=== PATIENT | female | born 1980 | race American Indian/Alaskan Native ===

== ENCOUNTER 2017-04-04 18:07 | Emergency (ER) | payer OTHER ==
[~2017-04-04] VITALS: Ht 162.6 cm; Wt 63.5 kg
[~2017-04-04 18:07] MED LIST: DOXYCYCLINE HY100 MG PO; IBUPROFEN600 MG PO
[2017-04-04] MEDS ORDERED: FOLIC ACID1 MG PO (18:19)
[2017-04-04] MEDS ORDERED: MULTI VITAMIN1 EACH PO (18:19)
[2017-04-04] MEDS ORDERED: VITAMIN B-1100 M1 PO (18:19)
[2017-04-04] MEDS ORDERED: CHLORDIAZEPOXID25 MG PO (18:24)
[2017-04-04] MEDS ORDERED: IBUPROFEN200 M1 PO (18:24)
[2017-04-04] MEDS ORDERED: ZOFRAN ODT4 MG PO (18:25)
[2017-04-04] MEDS ORDERED: TYLENOL EXTRA500 MG PO (18:25)
[2017-04-04] MEDS ORDERED: HYDROXYZINE HCL25 MG PO (18:25)
== END 2017-04-04 20:51 | disposition home or self-care (01) ==
LOC: ED 18:07
DX: O20.0 Threatened abortion (principal); O99.331 Smoking (tobacco) complicating pregnancy, first trimester; F17.200 Nicotine dependence, unspecified, uncomplicated; Z79.899 Other long term (current) drug therapy
CPT/HCPCS: 76801; 76817; 80053; 84702; 84703; 85025; 86900; 86901; 96361; 96374; 99284; G0480; J3411; J7030

== ENCOUNTER 2020-04-05 20:29 | Emergency (ER) | payer OTHER ==
[~2020-04-05] VITALS: Ht 160 cm; Wt 77.1 kg
[~2020-04-05 20:29] MED LIST changes: +CHLORDIAZEPOXID25 MG PO; +FOLIC ACID1 MG PO; +HYDROXYZINE HCL25 MG PO; +IBUPROFEN200 M1 PO; +MULTI VITAMIN1 EACH PO; +TYLENOL EXTRA500 MG PO; +VITAMIN B-1100 M1 PO; +ZOFRAN ODT4 MG PO
== END 2020-04-05 21:55 | disposition home or self-care (01) ==
LOC: ED 20:29
DX: N93.8 Other specified abnormal uterine and vaginal bleeding (principal); F17.200 Nicotine dependence, unspecified, uncomplicated
CPT/HCPCS: 81001; 84703; 99284

== ENCOUNTER 2024-05-10 12:58 | Emergency (ER) | payer OTHER ==
[~2024-05-10] VITALS: Ht 160 cm; Wt 86.7 kg
[~2024-05-10 12:58] MED LIST changes: +ONDANSETRON ODT8 MG PO; +SERTRALINE HCL100 MG PO; +VITAMIN D250 MCG PO
[2024-05-10 13:40] LABS: BASOPHILS 0.5 % (0-2); EOSINOPHILS 1.2 % (0-6); HEMATOCRIT 34.9 % (35.0-50.0); HEMOGLOBIN 12.2 g/dL (12.0-18.0); LYMPHOCYTES 25.7 % (24-44); MCH 29.5 (27-36); MCHC 34.9 g/dl (30-36); MCV 84.7 fl (81-99); MONOCYTES 7.2 % (0-12); NEUTROPHILS 65.4 % (39-80); PLATELET COUNT 496 K/uL (140-440); RBC 4.12 M/ul (4.3-5.7); RDW 14.8 (10.5-15.0)
[2024-05-10] MEDS ORDERED: CLONAZEPAM0.5 MG PO (13:43)
[2024-05-10] MEDS ORDERED: ondansetron HCL 4 MG/2 ML VIAL IV ONE (13:45)
[2024-05-10] MEDS ORDERED: HYDROmorphone HCL 1 MG/ML SYR IV ONE (13:45)
[2024-05-10 13:52] LABS: ABO O; RH POSITIVE
[2024-05-10 14:01] LABS: ALBUMIN 3.6 g/dL (3.4-5.0); ALBUMIN/GLOBULIN RATIO 0.84 (1.1-2.4); ANION GAP 14.8 (7-21); BILIRUBIN, TOTAL 0.6 ng/dL (0.2-1.0); BUN/CREATININE RATIO 10.84 (6.0-28.6); CALCIUM 8.8 mg/dL (8.5-10.1); CREATININE, SERUM 0.83 mg/dL (0.55-1.02); POTASSIUM 3.8 mmol/L (3.5-5.1); PROTEIN, TOTAL 7.9 g/dL (6.4-8.2)
[2024-05-10] MEDS ORDERED: PERCOCET 5-3251 EACH PO (15:25)
[2024-05-10 15:40] VITALS: BP 114/76
== END 2024-05-10 15:40 | disposition home or self-care (01) ==
LOC: ED 12:58
PROVIDERS: Emergency Medicine
DX: O03.4 Incomplete spontaneous abortion without complication (principal); F17.200 Nicotine dependence, unspecified, uncomplicated; Z79.899 Other long term (current) drug therapy
CPT/HCPCS: 36415; 76801; 76817; 80048; 80053; 84702; 85025; 86900; 86901; 96374; 96375; 99284-25; J1171; J2405

== ENCOUNTER 2025-03-12 16:03 | Emergency (ER) | payer OTHER ==
[~2025-03-12] VITALS: Ht 162.6 cm; Wt 95.0 kg
[~2025-03-12 16:03] MED LIST changes: +CEFIXIME400 MG PO; +CLONAZEPAM0.5 MG PO; +CLONIDINE HCL0.1 MG PO; +FLOMAX0.4 MG PO; +HYDROCODON-ACE1 EAC8 PO; +HYDROXYZINE HCL50 MG PO; +IBU600 MG PO; +ONDANSETRON HCL4 MG PO; +OXYCODONE HCL10 MG PO; +PERCOCET 5-3251 EACH PO; +SERTRALINE HCL100 MG; +SERTRALINE HCL200 MG PO
[2025-03-12] MEDS ORDERED: HYDROCODONE BIT/ACETAMINOPHEN 5/325 MG 1 TAB HOME.PACK PO ONE (18:45)
[2025-03-12] MEDS ORDERED: PENICILLIN V POTASSIUM 500 MG TAB PO ONE (18:45)
[2025-03-12] MEDS ORDERED: HYDROCODON-ACE1 EA10 PO (18:57)
[2025-03-12] MEDS ORDERED: PENICILLIN V P500 MG PO (18:57)
[2025-03-12 19:34] VITALS: BP 125/94
== END 2025-03-12 19:30 | disposition home or self-care (01) ==
LOC: ED 16:03
DX: K03.81 Cracked tooth (principal); F17.200 Nicotine dependence, unspecified, uncomplicated; Z79.899 Other long term (current) drug therapy
CPT/HCPCS: 99282; A9270